=== PATIENT | male | born 1965 | race Caucasian/White ===

== ENCOUNTER 2017-10-19 06:03 | Day surgery (SDC) | payer OTHER ==
[~2017-10-19 06:03] MED LIST: CEFAZOLIN 1 GM/50 ML (PMX) 50 ML IVPB; SOD CHLORIDE 0.9% 1,000 ML IV
[2017-10-19 07:02] LABS: ADD MAN DIFF? NO
[2017-10-19 07:04] LABS: BASOPHILS % 0.2 % (0.0-2.0); EOSINOPHILS # 0.1 10^3/ul (0.0-0.5); EOSINOPHILS % 2.7 % (0.0-7.0); HEMATOCRIT 43.6 % (42.0-52.0); HEMOGLOBIN 14.7 g/dl (14.0-18.0); LYMPHOCYTES # 1.7 10^3/ul (0.8-2.9); LYMPHOCYTES % 35.7 % (15.0-51.0); MEAN CORPUSCULAR HEMOGLOBIN 30.8 pg (29.0-33.0); MEAN CORPUSCULAR HGB CONC 33.7 g/dl (32.0-37.0); MEAN CORPUSCULAR VOLUME 91.4 fl (82.0-101.0); MEAN PLATELET VOLUME 9.8 fl (7.4-10.4); MONOCYTE # 0.5 10^3/ul (0.3-0.9); NEUTROPHIL # 2.4 10^3/ul (1.6-7.5); NEUTROPHILS % 50.4 % (39.0-77.0); PLATELET COUNT 226 10^3/UL (140-415); RED BLOOD COUNT 4.77 10^6/ul (4.70-6.10); RED CELL DISTRIBUTION WIDTH 12.4 % (11.5-14.5)
[2017-10-19 07:04] LABS: WHITE BLOOD COUNT 4.8 10^3/ul (4.8-10.8)
[2017-10-19] MEDS ORDERED: LIDOCAINE 1% (MPF) 30 ML INJ (07:15)
[2017-10-19 07:21] LABS: ALANINE AMINOTRANSFERASE 27 IU/L (13-69); ALBUMIN 3.9 g/dl (3.3-4.9); ALBUMIN/GLOBULIN RATIO 1.39; ALKALINE PHOSPHATASE 35 IU/L (42-121); ANION GAP 12 (8-16); ASPARTATE AMINO TRANSFERASE 36 IU/L (15-46); BILIRUBIN,INDIRECT 1.6 mg/dl (0-1.1); BILIRUBIN,TOTAL 1.6 mg/dl (0.2-1.3); CARBON DIOXIDE 27 mmol/L (21-31); CHLORIDE 107 mmol/L (97-110); GLUCOSE 95 mg/dl (70-220); TOTAL PROTEIN 6.7 g/dl (6.1-8.1)
[2017-10-19 07:22] LABS: BLOOD UREA NITROGEN 13 mg/dl (7-20); CALCIUM 9.1 mg/dl (8.4-10.2); CREATININE 0.83 mg/dl (0.61-1.24); POTASSIUM 4.2 mmol/L (3.5-5.1); SODIUM 142 mmol/L (135-144)
[2017-10-19 07:24] LABS: PARTIAL THROMBOPLASTIN TIME 26.5 Sec (25.0-35.0); PROTIME 13.3 Sec (11.9-14.9)
[2017-10-19] MEDS ORDERED: CEFAZOLIN 1 GM INJ (07:37)
[2017-10-19] MEDS ORDERED: PROPOFOL 20 ML (07:37)
[2017-10-19] MEDS ORDERED: ROCURONIUM 50 MG INJ (07:37)
[2017-10-19] MEDS ORDERED: FENTAnyl 50 MCG/ML VIAL (07:37)
[2017-10-19] MEDS ORDERED: MIDAZOLAM 1 MG/ML 2 ML INJ (07:37)
[2017-10-19] MEDS: BUPIVACAINE 0.25%/EPI (SDV) 30 ML INJ (08:03)
[2017-10-19] MEDS ORDERED: BUPIVACAINE 0.5% (SDV) 30 ML INJ (08:03)
[2017-10-19] MEDS ORDERED: DEXAMETHASONE 4 MG/ML 1 ML INJ (08:17)
[2017-10-19] MEDS ORDERED: KETOROLAC 30 MG INJ (08:17)
[2017-10-19] MEDS ORDERED: METOCLOPRAMIDE 10 MG INJ (08:17)
[2017-10-19] MEDS ORDERED: ONDANSETRON 4 MG INJ (08:17)
[2017-10-19] MEDS ORDERED: SUGAMMADEX SODIUM 200 MG/2 ML VIAL IV (08:17)
[2017-10-19] MEDS ORDERED: HYDROmorphONE 1 MG/5 ML IV SYRINGE IV ×3 (08:30)
[2017-10-19] MEDS ORDERED: MEPERIDINE 25 MG INJ IV (08:30)
[2017-10-19] MEDS ORDERED: METOCLOPRAMIDE 10 MG INJ IV (08:30)
[2017-10-19] MEDS ORDERED: ONDANSETRON 4 MG INJ IV (08:30)
[2017-10-19] MEDS ORDERED: DIPHENHYDRAMINE 50 MG INJ IV (08:30)
[2017-10-19] MEDS ORDERED: EPHEDrine SULFATE 50 MG/5 ML SYG IV (08:30)
[2017-10-19] MEDS ORDERED: OXYCODONE/ACETAMINOPHEN (5/325) TAB PO ×2 (08:30)
[2017-10-19] MEDS ORDERED: FENTAnyl 50 MCG/ML VIAL IV ×3 (08:30)
[2017-10-19] MEDS ORDERED: HYDROCODONE/APAP (5/325) TAB PO ×2 (09:00)
== END 2017-10-19 09:59 | disposition home or self-care (01) ==
LOC: SDS 06:03
DX: D17.1 Benign lipomatous neoplasm of skin and subcutaneous tissue of trunk (principal); R00.1 Bradycardia, unspecified
CPT/HCPCS: 21932; 71045; 80053; 85025; 85610; 85730; 88304; 93005